=== PATIENT | female | born 1990 | race Caucasian/White ===

== ENCOUNTER 2018-08-22 17:14 | Emergency (ER) | payer SELFPAY ==
[~2018-08-22] VITALS: Ht 154.9 cm; Wt 60.3 kg
[~2018-08-22 17:14] MED LIST: FERR324T4 PO; HYDR1TAB PO; METH4TAB PO; NAPR-243 PO
[2018-08-22] MEDS ORDERED: IBUPROFEN 800 MG (MOTRIN) TAB PO ONE (18:00)
[2018-08-22] MEDS ORDERED: ACETAMINOPHEN 500 MG TAB (TYLENOL) PO ONE (18:00)
--- NOTE | 2018-08-22 18:09 | ED Cough/URI ---
General Chief Complaint: Cough/Cold/Flu Symptoms Stated Complaint: FEVER/HEAD PRESSURE/SORE THROAT Nursing Triage Note: SORE THROAT, HEAD PRESSURE, FEVER Source: patient Exam Limitations: no limitations History of Present Illness Date Seen by Provider: Aug 22, 2018 Time Seen by Provider: 17:46 Initial Comments Patient is a 28-year-old female who presents to the emergency room with complaints of sore throat, headache, fever that started this morning. Denies any respiratory symptoms. Ports taking Tylenol at 1200 today. Timing/Duration: this morning Severity/Quality: no cough Prior Episodes/Possible Cause: no prior episodes Associated Symptoms: fever/chills, headache Allergies and Home Medications Allergies Coded Allergies: Penicillins (Verified Allergy, Unknown, ANAPHYLAXIS, 10/07/14) sulfamethoxazole (Verified Allergy, Unknown, HIVES, 10/07/14) trimethoprim (Verified Allergy, Unknown, HIVES, 10/07/14) Home Medications Methylprednisolone 4 Mg/Dose-Pack Tab.ds.pk, 0 PO UD Prescribed by: AUGUSTUS FOURNIER on 10/07/14 0442 Patient Home Medication List Home Medication List Reviewed: Yes Review of Systems Review of Systems Constitutional: see HPI, chills, fever Psychiatric/Neurological: See HPI, Headache All Other Systems Reviewed Negative Unless Noted: Yes Past Begrihz-Vduqhd-Cbaiph Hx Past Med/Social Hx: Reviewed Nursing Past Med/Soc Hx Patient Social History Alcohol Use: Rarely Uses Recreational Drug Use: No Smoking Status: Current Everyday Smoker Type Used: Electronic/Vapor 2nd Hand Smoke Exposure: Yes Recent Foreign Travel: No Contact w/Someone Who Travel: No Recent Infectious Disease Expo: No Recent Hopitalizations: No Physical Abuse: No Sexual Abuse: No Fear: No Seasonal Allergies Seasonal Allergies: Yes Past Medical History Surgeries: Yes (CYST REMOVAL) Respiratory: Yes Asthma Cardiac: No Neurological: No : No Genitourinary: No Gastrointestinal: No Musculoskeletal: No Endocrine: No HEENT: No Cancer: No Psychosocial: Yes Sleep Difficulties, Anxiety, Bipolar, Depression Integumentary: Yes Blood Disorders: No Adverse Reaction/Blood Tranf: No Family Medical History Reviewed Nursing Family Hx Physical Exam Vital Signs - First Documented 08/22/18 08/22/18 08/22/18 17:45 17:52 19:43 Temp 102.0 Pulse 100 Resp 19 B/P (MAP) 119/88 (98) Pulse Ox 98 O2 Delivery Room Air Capillary Refill : Less Than 3 Seconds Height: 5'1.00" Weight: 133lbs. oz. 60.410797fs; BMI Method:Stated General Appearance: WD/WN, no apparent distress Eyes: Bilateral Eye Normal Inspection, Bilateral Eye PERRL, Bilateral Eye EOMI HEENT: PERRL/EOMI, normal ENT inspection, TMs normal, pharynx normal Neck: non-tender, full range of motion, supple, normal inspection Respiratory: chest non-tender, lungs clear, normal breath sounds, no respiratory distress, no accessory muscle use, respiratory distress Cardiovascular: normal peripheral pulses, regular rate, rhythm, no edema, no gallop, no JVD, no murmur Extremities: normal capillary refill Neurologic/Psychiatric: alert, normal mood/affect, oriented x 3 Skin: normal color, warm/dry normal Brudzinski and Kernig exam. Progress/Results/Core Measures Suspected Sepsis Recent Fever Within 48 Hours: Yes Infection Criteria Present: Suspected New Infection New/Unexplained Altered Menta: No Sepsis Screen: Possible Sepsis Risk SIRS Temperature:102.0 Pulse: 100 Respiratory Rate: Blood Pressure 119 /88 Mean: 98 Results/Orders Lab Results Laboratory Tests Test 08/22/18 18:00 Range/Units Group A Streptococcus Screen NEGATIVE NEGATIVE Micro Results Microbiology 08/22/18 Throat Culture - Final, Complete No Beta Strep isolated 08/22/18 Influenza Types A,B Antigen (TAO) - Final, Complete My Orders Orders - ELLEN VOGEL Rapid Strep A Screen (08/22/18 17:38) Influenza A And B Antigens (08/22/18 17:38) Ibuprofen Tablet (Motrin Tablet) (08/22/18 18:00) Acetaminophen Tablet (Tylenol Tablet) (08/22/18 18:00) Medications Given in ED Vital Signs/I&O 08/22/18 08/22/18 08/22/18 17:45 17:52 19:43 Temp 102.0 100.0 Pulse 100 100 Resp 19 B/P (MAP) 119/88 (98) 119/88 (98) Pulse Ox 98 O2 Delivery Room Air Room Air Capillary Refill : Less Than 3 Seconds Blood Pressure Mean: 98 Departure Impression Primary Impression: Influenza-like symptoms Disposition: 01 HOME, SELF-CARE Condition: Stable/Unchanged Departure-Patient Inst. Decision time for Depature: 19:40 Referrals: MICKIE QUIROZ MD (PCP/Family) Primary Care Physician Patient Instructions: Viral Upper Respiratory Infection, Adult (DC) Add. Discharge Instructions: Continue to use ibuprofen and Tylenol as directed by the bottle for pain relief. Do not return back to work until you are fever free for 24 hours. Drink plenty of clear liquids like water to stay hydrated. Return back to the emergency room for any worsening symptoms or concerns as needed. All discharge instructions reviewed with patient and/or family. Voiced understanding. Work/School Note: Work Release Form Date Seen in the Emergency Department: Aug 22, 2018 Return to Work: Aug 25, 2018 Restrictions: Return-No Fever (24hrs) ELLEN VOGEL Aug 22, 2018 18:09
[2018-08-22 19:43] VITALS: BP 119/88
== END 2018-08-22 19:45 | disposition home or self-care (01) ==
LOC: EDUNIT# 17:14 → ER 17:16
DX: J10.1 Influenza due to other identified influenza virus with other respiratory manifestations (principal); J45.909 Unspecified asthma, uncomplicated; F41.9 Anxiety disorder, unspecified; F31.9 Bipolar disorder, unspecified; Z88.0 Allergy status to penicillin; Z98.890 Other specified postprocedural states; Z88.2 Allergy status to sulfonamides; Z88.8 Allergy status to other drugs, medicaments and biological substances; Z79.52 Long term (current) use of systemic steroids
CPT/HCPCS: 87430; 87804

== ENCOUNTER 2021-09-16 17:12 | Emergency (ER) | payer SELFPAY ==
[~2021-09-16] VITALS: Ht 61 cm; Wt 68.9 kg
[2021-09-16 17:48] LABS: BILIRUBIN,URINE NEGATIVE (NEGATIVE); CLARITY,URINE CLEAR; COLOR,URINE YELLOW; GLUCOSE, URINE (UA) NEGATIVE (NEGATIVE); KETONES,URINE NEGATIVE (NEGATIVE); LEUKOCYTE ESTERASE ,URINE NEGATIVE (NEGATIVE); NITRITE,URINE NEGATIVE (NEGATIVE); PROTEIN,URINE NEGATIVE (NEGATIVE)
--- NOTE | 2021-09-16 17:51 | ED Abdominal Pain ---
General Chief Complaint: Abdominal/GI Problems Stated Complaint: ABD PAIN Nursing Triage Note: Pt arrives via POV from home with c/o midline ABD pain; onset Wednesday. Pt seen at [facility], states she was told to come to ED for workup. Pt denies N/V/D, does report normal bowel movements. Source of Information: Patient Exam Limitations: No Limitations (ROSSANA HUBER APRN) History of Present Illness Date Seen by Provider: Sep 16, 2021 Time Seen by Provider: 17:48 Initial Comments To ER with reports of periumbilical/upper abdominal pain that is midline began Wednesday. She was at [facility] last night but waited for 6 hours to be seen and ultimately left without being seen. She was seen at [facility] and referred here to the emergency room. She denies nausea or vomiting, denies vaginal discharge or dysuria. Denies possibility of . Denies bowel changes. No history of this. Certain positions make the pain better and certain positions make the pain worse. She has tried Tylenol and ibuprofen without any relief of symptoms. Timing/Duration: 3-4 Days Severity/Quality: Moderate Location: Epigastric, Periumbilical Radiation: No Radiation Activities at Onset: None Associated Symptoms: No Fever/Chills, No Nausea/Vomiting (ROSSANA HUBER APRN) Allergies and Home Medications Allergies Coded Allergies: Penicillins (Verified Allergy, Unknown, ANAPHYLAXIS, 10/07/14) sulfamethoxazole (Verified Allergy, Unknown, HIVES, 10/07/14) trimethoprim (Verified Allergy, Unknown, HIVES, 10/07/14) Patient Home Medication List Home Medication List Reviewed: Yes (ROSSANA HUBER APRN) Methylprednisolone (Medrol Dose Pack) 4 Mg/Dose-Pack Tab.ds.pk, 0 PO UD Prescribed by: AUGUSTUS FOURNIER on 10/07/14 5042 Review of Systems Review of Systems Constitutional: see HPI EENTM: No Symptoms Reported Respiratory: No Symptoms Reported Cardiovascular: See HPI Gastrointestinal: See HPI, Abdominal Pain; Denies Constipated, Denies Diarrhea, Denies Nausea Genitourinary: No Symptoms Reported Musculoskeletal: no symptoms reported Skin: no symptoms reported Psychiatric/Neurological: No Symptoms Reported Endocrine: No Symptoms Reported Hematologic/Lymphatic: No Symptoms Reported (ROSSANA HUBER APRN) Past Tfsbkun-Nrftcc-Zuuovc Hx Patient Social History Tobacco Use?: No Use of E-Cig and/or Vaping dev: Yes E-Cig or Vaping type used: Nicotine Substance use?: No Alcohol Use?: No Pt feels they are or have been: No (ROSSANA HUBER APRN) Immunizations Up To Date Influenza Vaccine Up-to-Date: No; Not Current (ROSSANA HUBER APRN) Seasonal Allergies Seasonal Allergies: Yes (ROSSANA HUBER APRN) Past Medical History Surgeries: Yes (CYST REMOVAL) Respiratory: Yes Asthma Cardiac: No Neurological: No Genitourinary: No Gastrointestinal: No Musculoskeletal: No Endocrine: No HEENT: No Cancer: No Psychosocial: Yes Sleep Difficulties, Anxiety, Bipolar, Depression Integumentary: Yes Blood Disorders: No Adverse Reaction/Blood Tranf: No (ROSSANA HUBER APRN) Physical Exam Vital Signs Vital Signs - First Documented 09/16/21 17:25 Temp 37.0 Pulse 93 Resp 18 B/P (MAP) 129/94 (106) Pulse Ox 98 O2 Delivery Room Air (TANIA LIVINGSTON MD) Vital Signs Capillary Refill : Less Than 3 Seconds (ROSSANA HUBER APRN) Height/Weight/BMI Height: 5'1.00" Weight: 133lbs. oz. 60.556770pb; 185.00 BMI Method:Stated General Appearance: WD/WN, no apparent distress HEENT: PERRL/EOMI, normal ENT inspection Neck: non-tender, full range of motion Respiratory: no respiratory distress, no accessory muscle use Cardiovascular: regular rate, rhythm, no murmur Gastrointestinal: normal bowel sounds, soft, tenderness Extremities: normal range of motion, non-tender Neurologic/Psychiatric: alert, normal mood/affect, oriented x 3 Skin: normal color, warm/dry (ROSSANA HUBER APRN) Progress/Results/Core Measures Results/Orders Lab Results Laboratory Tests Test 09/16/21 17:30 09/16/21 17:45 Range/Units Urine Color YELLOW Urine Clarity CLEAR Urine pH 6.0 5-9 Urine Specific [place] 1.020 1.016-1.022 Urine Protein NEGATIVE NEGATIVE Urine Glucose (UA) NEGATIVE NEGATIVE Urine Ketones NEGATIVE NEGATIVE Urine Nitrite NEGATIVE NEGATIVE Urine Bilirubin NEGATIVE NEGATIVE Urine Urobilinogen 0.2 < = 1.0 MG/DL Urine Leukocyte Esterase NEGATIVE NEGATIVE Urine RBC (Auto) NEGATIVE NEGATIVE Urine RBC NONE /HPF Urine WBC 2-5 /HPF Urine Squamous Epithelial Cells 2-5 /HPF Urine Crystals PRESENT H /LPF Urine Amorphous Sediment FEW CHAKA URATES H /LPF Urine Bacteria FEW H /HPF Urine Casts NONE /LPF Urine Mucus SMALL H /LPF Urine Culture Indicated YES White Blood Count 5.7 4.3-11.0 10^3/uL Red Blood Count 5.19 H 3.80-5.11 10^6/uL Hemoglobin 12.7 11.5-16.0 g/dL Hematocrit 41 35-52 % Mean Corpuscular Volume 79 L 80-99 fL Mean Corpuscular Hemoglobin 25 25-34 pg Mean Corpuscular Hemoglobin Concent 31 L 32-36 g/dL Red Cell Distribution Width 14.9 H 10.0-14.5 % Platelet Count 272 130-400 10^3/uL Mean Platelet Volume 9.5 9.0-12.2 fL Immature Granulocyte % (Auto) 0 % Neutrophils (%) (Auto) 62 42-75 % Lymphocytes (%) (Auto) 31 12-44 % Monocytes (%) (Auto) 5 0-12 % Eosinophils (%) (Auto) 1 0-10 % Basophils (%) (Auto) 1 0-10 % Neutrophils # (Auto) 3.5 1.8-7.8 10^3/uL Lymphocytes # (Auto) 1.8 1.0-4.0 10^3/uL Monocytes # (Auto) 0.3 0.0-1.0 10^3/uL Eosinophils # (Auto) 0.1 0.0-0.3 10^3/uL Basophils # (Auto) 0.0 0.0-0.1 10^3/uL Immature Granulocyte # (Auto) 0.0 0.0-0.1 10^3/uL Sodium Level 138 135-145 MMOL/L Potassium Level 4.1 3.6-5.0 MMOL/L Chloride Level 102 98-107 MMOL/L Carbon Dioxide Level 23 21-32 MMOL/L Anion Gap 13 5-14 MMOL/L Blood Urea Nitrogen 11 7-18 MG/DL Creatinine 0.85 0.60-1.30 MG/DL Estimat Glomerular Filtration Rate 79 BUN/Creatinine Ratio 13 Glucose Level 98 70-105 MG/DL Calcium Level 9.5 8.5-10.1 MG/DL Corrected Calcium 9.2 8.5-10.1 MG/DL Total Bilirubin 1.0 0.1-1.0 MG/DL Aspartate Amino Transf (AST/SGOT) 19 5-34 U/L Alanine Aminotransferase (ALT/SGPT) 8 0-55 U/L Alkaline Phosphatase 71 40-136 U/L Total Protein 8.2 6.4-8.2 GM/DL Albumin 4.4 3.2-4.5 GM/DL Lipase 62 8-78 U/L (TANIA LIVINGSTON MD) Medications Given in ED Current Medications Medications Dose Ordered Sig/Ron Route Start Time Stop Time Status Last Admin Dose Admin Acetaminophen/ Hydrocodone Bitart 1 ea Q4H PRN PO 09/16/21 19:15 09/16/21 19:36 DC 09/16/21 19:28 1 EA Al Hydrox/Mg Hydrox/Simethicone 30 ml ONCE ONCE PO 09/16/21 19:15 09/16/21 19:16 DC 09/16/21 19:28 30 ML Lidocaine HCl 15 ml ONCE ONCE PO 09/16/21 19:15 09/16/21 19:16 DC 09/16/21 19:28 15 ML (TANIA LIVINGSTON MD) Vital Signs/I&O 09/16/21 09/16/21 17:25 19:29 Temp 37.0 37.0 Pulse 93 93 Resp 18 18 B/P (MAP) 129/94 (106) 129/94 Pulse Ox 98 98 O2 Delivery Room Air Room Air (TANIA LIVINGSTON MD) Blood Pressure Mean: 106 Departure Communication (Admissions) 1910-pain is not much improved she states. Will offer a GI cocktail. Have her follow-up with surgery. NAME: EBER HOLDER [facility] REC#: [id number] PT STATUS: REG ER : 1990 PHYSICIAN: ROSSANA HUBER APRN ADMIT DATE: 09/16/21/ER Draft Date of Exam:09/16/21 CT ABD/PELV W (APPENDICITIS) PROCEDURE: CT abdomen and pelvis with contrast, rule out appendicitis. TECHNIQUE: Multiple contiguous axial images were obtained through the abdomen and pelvis after the administration of intravenous contrast. All CT scans use one or more of the following dose optimizing techniques: automated exposure control, MA and/or KvP adjustment based on patient size and exam type or iterative reconstruction. INDICATION: Periumbilical pain. COMPARISON: No prior studies are available for comparison. The lung bases are clear. The liver and gallbladder are unremarkable. There is no biliary ductal dilatation. Pancreas and spleen are unremarkable. No adrenal mass is detected. Kidneys are unremarkable. Aorta is nonaneurysmal. Bowel loops are normal caliber. There is moderate stool in the colon. The appendix is visualized in the right lower quadrant and does not appear to be dilated or thick-walled. No periappendiceal inflammation is present. The uterus and ovaries are unremarkable apart from a probable cyst in the left ovary measuring approximately 2.5 cm. No free fluid is seen. The bladder is decompressed. IMPRESSION: No CT evidence of acute appendicitis. There is a left adnexal cyst. The study is otherwise unremarkable. Dictated on workstation # [id number] Dict: 09/16/21 1858 Trans: 09/16/21 [address] [facility] [id number] Interpreted by: ESTUARDO MISTRY MD Electronically signed by: (ROSSANA HUBER APRN) Impression Primary Impression: Nonspecific abdominal pain Disposition: 01 HOME, SELF-CARE Condition: Stable Departure-Patient Inst. Decision time for Depature: 19:07 (ROSSANA HUBER APRN) Referrals: [facility] [place] (PCP/Family) Primary Care Physician EVENS ROBERTS BRETT D DO KIDO, TAKAAKI MD Add. Discharge Instructions: 1. Follow-up with your doctor next week. The cause of your abdominal pain is not clear. Your CT scan was normal with the exception of a small cyst on the left ovary. Your blood work was normal. 2. Return to ER for any concerns. All discharge instructions reviewed with patient and/or family. Voiced understanding. Work/School Note: Work Release Form Date Seen in the Emergency Department: Sep 16, 2021 Return to Work: Sep 18, 2021 ATTENDING PHYSICIAN NOTE: I was physically present as attending physician in the emergency department during the care of this patient, but I was not directly involved in the decision making or delivery of care for this patient. (TANIA LIVINGSTON MD) ROSSANA HUBER APRN Sep 16, 2021 17:51 TANIA LIVINGSTON MD Sep 17, 2021 06:27
[2021-09-16] MEDS ORDERED: fentaNYL INJ 100 MCG/2 ML AMP IVP ONE (18:00)
[2021-09-16 18:02] LABS: ALBUMIN 4.4 GM/DL (3.2-4.5); BASOPHILS % (AUTO) 1 % (0-10); EOSINOPHILS # (AUTO) 0.1 10^3/uL (0.0-0.3); EOSINOPHILS % (AUTO) 1 % (0-10); HEMATOCRIT 41 % (35-52); HEMOGLOBIN 12.7 g/dL (11.5-16.0); LYMPHOCYTES # (AUTO) 1.8 10^3/uL (1.0-4.0); LYMPHOCYTES % (AUTO) 31 % (12-44); MEAN CORPUSCULAR HEMOGLOBIN 25 pg (25-34); MEAN CORPUSCULAR HGB CONC 31 g/dL (32-36); MEAN CORPUSCULAR VOLUME 79 fL (80-99); MEAN PLATELET VOLUME 9.5 fL (9.0-12.2); MONOCYTES # (AUTO) 0.3 10^3/uL (0.0-1.0); MONOCYTES % (AUTO) 5 % (0-12); NEUTROPHILS # (AUTO) 3.5 10^3/uL (1.8-7.8); NEUTROPHILS % (AUTO) 62 % (42-75); PLATELET COUNT 272 10^3/uL (130-400); WHITE BLOOD COUNT 5.7 10^3/uL (4.3-11.0)
[2021-09-16 18:03] LABS: POTASSIUM 4.1 MMOL/L (3.6-5.0)
[2021-09-16 18:04] LABS: CALCIUM 9.5 MG/DL (8.5-10.1)
[2021-09-16 18:05] LABS: TOTAL PROTEIN 8.2 GM/DL (6.4-8.2)
[2021-09-16 18:06] LABS: BACTERIA,URINE FEW /HPF
[2021-09-16 18:07] LABS: AMORPHOUS SEDIMENT,UR FEW AMOR URATES /LPF
[2021-09-16 18:09] LABS: CREATININE SERUM 0.85 MG/DL (0.60-1.30)
[2021-09-16] MEDS ORDERED: HOLD METFORMIN - RECEIVED CONTRAST 20 ML VIAL IV SCH (18:15)
[2021-09-16] MEDS ORDERED: IOHEXOL 350 MG/ML 100 ML (OMNIPAQUE 350) VIAL IV ONE (18:15)
[2021-09-16] MEDS ORDERED: NS 100 ML (IVPB) BAG IV ONE (18:15)
--- NOTE | 2021-09-16 19:05 | Diagnostic Imaging Report ---
PROCEDURE: CT abdomen and pelvis with contrast, rule out appendicitis. TECHNIQUE: Multiple contiguous axial images were obtained through the abdomen and pelvis after the administration of intravenous contrast. All CT scans use one or more of the following dose optimizing techniques: automated exposure control, MA and/or KvP adjustment based on patient size and exam type or iterative reconstruction. INDICATION: Periumbilical pain. COMPARISON: No prior studies are available for comparison. The lung bases are clear. The liver and gallbladder are unremarkable. There is no biliary ductal dilatation. Pancreas and spleen are unremarkable. No adrenal mass is detected. Kidneys are unremarkable. Aorta is nonaneurysmal. Bowel loops are normal caliber. There is moderate stool in the colon. The appendix is visualized in the right lower quadrant and does not appear to be dilated or thick-walled. No periappendiceal inflammation is present. The uterus and ovaries are unremarkable apart from a probable cyst in the left ovary measuring approximately 2.5 cm. No free fluid is seen. The bladder is decompressed. IMPRESSION: No CT evidence of acute appendicitis. There is a left adnexal cyst. The study is otherwise unremarkable. Dictated by: Dictated on workstation # [id number]
[2021-09-16] MEDS ORDERED: LIDOCAINE 2% VISCOUS 15 ML UDC PO ONE (19:15)
[2021-09-16] MEDS ORDERED: ANTACID SUSP 30 ML UDC (MYLANTA) PO ONE (19:15)
[2021-09-16 19:29] VITALS: BP 129/94
== END 2021-09-16 19:36 | disposition home or self-care (01) ==
LOC: EDUNIT# 17:12 → ER 17:13
DX: R10.33 Periumbilical pain (principal); J45.909 Unspecified asthma, uncomplicated
CPT/HCPCS: 36415; 74177; 80053; 81000; 83690; 84703; 85025; 87088